=== PATIENT | female | born 1965 | race Two or more races ===

== ENCOUNTER 2017-08-10 13:53 | Outpatient (CLI) | payer OTHER | END 2017-08-10 14:01 | disposition home or self-care (01) | LOC: RAD 13:53 | DX: M79.671 Pain in right foot (principal) ==

== ENCOUNTER → 2017-08-10 | Outpatient (CLI) | payer OTHER ==
[~2017-08-10] MED LIST: FIORICET 50-321 EACH; FIORICET 50-321 EACH PO; FIORICET PO; LEVOTHYROXINE50 MCG PO; NABUMETONE750 MG; NABUMETONE750 MG PO; NAPROXEN500 M1; NAPROXEN500 M1 PO; OMEPRAZOLE40 MG; OMEPRAZOLE40 MG PO; PANTOPRAZOLE SO40 MG PO; SYNTHROID50 MCG; SYNTHROID50 MCG PO; TOPROL XL50 MG; TOPROL XL50 MG PO; VOLTAREM 50 MG PO
== END | disposition home or self-care (01) ==
LOC: PPHC 12:44
DX: M54.89 Other dorsalgia (principal)

== ENCOUNTER 2018-05-21 16:43 | Emergency (ER) | payer OTHER ==
[~2018-05-21] VITALS: Ht 162.6 cm; Wt 77.1 kg
[2018-05-21] MEDS ORDERED: COZAAR50 MG (16:56)
[2018-05-21] MEDS ORDERED: TOPROL XL100 M1 (16:56)
== END 2018-05-21 20:41 | disposition home or self-care (01) ==
LOC: ER 16:43
DX: G44.209 Tension-type headache, unspecified, not intractable (principal); I10 Essential (primary) hypertension